=== PATIENT | female | born 1990 | race Caucasian/White ===

== ENCOUNTER 2020-02-17 12:22 | Observation (INO) | payer MEDICAID, SELFPAY ==
[2020-02-17 12:24] VITALS: BP 101/67; PULSE 87; RESP 18; TEMP 36.3; O2SAT 95; BMI 34.0
[2020-02-17 13:50] LABS: Absolute Lymphocyte Count 1.97 X10^3/uL (0.83-4.51); Absolute Neutrophil Count 4.7 X10^3/uL (2.0-7.7); Basophil# 0.03 X10^3/uL; Basophil% 0.4 % (0-1); Eosinophil# 0.13 X10^3/uL; Eosinophils% 1.8 % (0-5); Hematocrit 36.1 % (37-47); Hemoglobin 11.7 g/dL (12.0-15.0); Lymphocyte # 1.97 X10^3/ul (4.0); Lymphocyte % 27.4 % (19-41); Mean Corp Hgb Conc 32.4 g/dL (32-36); Mean Corpuscular Hgb 28.4 pg (27.0-32.0); Mean Corpuscular Volume 87.6 fL (81-99); Mean Platelet Vol. 9.4 fl (6.2-12.0); Monocyte# 0.39 X10^3/uL; Monocyte% 5.4 % (0-10); NRBC Flagged by Analyzer 0 % (0-5); Neutrophil # 4.65 X10^3/uL (2.7-7.7); Neutrophil % 64.7 % (47-70); Platelet Count 307 K/mm3 (150-450); RBC Distribution Width CV 13.2 % (11.6-14.6); RBC Distribution Width SD 42.4 fl (35.1-43.9); Red Blood Count 4.12 M/mm3 (4.2-5.4); White Blood Count 7.2 K/mm3 (4.4-11.0)
[2020-02-17 14:06] LABS: ALB/GLOB Ratio 0.7 RATIO (0.9-2.4); AST(SGOT) 13 U/L (15-37); Alanine Aminotransfer ALT/SGPT 13 U/L (13-56); Albumin, Serum 2.9 g/dL (3.2-5.0); Alkaline Phosphatase 64 U/L (45-117); Anion Gap 4 (5-15); BUN 9 mg/dL (7-18); BUN/Creat Ratio 10.2 RATIO (10-20); Calcium,Total 8.6 mg/dL (8.5-10.1); Chloride 105 mmol/L (98-107); Creatinine, Serum 0.88 mg/dL (0.55-1.02); EST Glomerular Filtration Rate 80 mL/min (>60); Est Glom Filt Rate - Afr Amer 96 mL/min (>60); Glucose 112 mg/dL (74-106); Potassium 3.6 mmol/L (3.5-5.1); Protein, Total 6.9 g/dL (6.4-8.2); Sodium Level 138 mmol/L (136-145)
[2020-02-17 14:12] LABS: Alcohol, Blood (Medical)-Serum < 3.0 mg/dL; Internal QC Validated? YES +Cl - CLEAR BKGD; Pregnancy, Serum, hCG Quali. NEGATIVE Negative
[2020-02-17 14:34] VITALS: BP 103/57; PULSE 67; RESP 12; O2SAT 100
--- NOTE | 2020-02-17 14:55 | PCM.HP.STD ---
History of Present Illness Date of Admission: 02/17/20 Chief Complaint: Opiate withdrawal The patient is a 29 year old F with a past medical history of opiate abuse. She was admitted through the ED on 02/17/2020 with a complaint of acute opiate withdrawal. Patient uses IV heroin and IV cocaine and last used the day before admission. She still uses it IV. She complained of abdominal cramping generally feeling restless as well as restless legs. She also complained of pain on her right thigh at the site where she had been injecting IV heroin with some associated redness. Review of sytems otherwise negative. On admission, temperature was 98 Fahrenheit with blood pressure of 93/53, pulse rate of 73 and respiratory rate of 18 with pulse ox of 98%. Chemistry was essentially unremarkable and CBC showed hemoglobin of 7.1 with white cell count of 7.2. Platelets were 307. She was given IV doxycycline in the ED for cellulitis of the right thigh and is been admitted to manage for acute opiate withdrawal and cellulitis due to IV drug use. [] Past Medical History Past Medical History (Chronic Problems): Chronic Problems Hepatitis C (Chronic) IVDU (intravenous drug user) (Chronic) Tobacco abuse (Chronic) Anxiety and depression (Chronic) Allergies cephalexin monohydrate [From Keflex] Allergy (Verified 02/17/20 12:26) Hives clindamycin Allergy (Verified 02/17/20 12:26) Hives morphine Allergy (Verified 02/17/20 12:26) Hives ondansetron HCl [From Zofran (as hydrochloride)] Allergy (Verified 02/17/20 12:26) Hives rifampin Allergy (Verified 02/17/20 12:26) Hives sulfamethoxazole [From Bactrim] Allergy (Verified 02/17/20 12:26) Hives trimethoprim [From Bactrim] Allergy (Verified 02/17/20 12:26) Hives vancomycin Allergy (Verified 02/17/20 12:26) Hives Home Medications: Ambulatory Orders Medication Instructions Recorded NK 02/17/20 Surgical History: - - I+D, cholecystectomy, x 3. 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 Denies: Anorexia, Chills, Fever, Fatigue Eyes: Denies: Blurred vision HEENT: Denies: Head Aches, Sinus Congestion, Sinus Drainage Cardiovascular: Denies: Chest Pain, Palpitations Respiratory: Denies: Cough, Shortness of Breath, Shortness of breath at rest, Shortness of breath upon exertion, Sputum production Gastrointestinal: Denies: Abdominal Pain, Nausea, Vomiting Genitourinary: Denies: Dysuria Musculoskeletal: Reports: - - right thigh pain. Denies: Joint Pain, Joint Tenderness Skin: Reports: - - redness on right thigh. Denies: Rash, Wounds Neurological: Denies: Numbness, Tingling, Focal weakness Psychiatric: Denies: Anxiety, Depression, Homicidal Ideations, Suicidal Ideations Hematologic/ Lymphatic: Denies: Easy Bruising, Easy Bleeding VTE Information - Inpt Only VTE Present on Admission: No VTE Pharm Prophylaxis ordered?: Yes Patient Problems: Active and Suspected Problems Opiate dependence (Acute) Cellulitis of right thigh (Acute) - Physical Exam Vitals/I&O's: Vital Signs Temp Pulse Resp BP Pulse Ox 97.3 F L 67 12 103/57 L 100 02/17/20 12:24 02/17/20 14:34 02/17/20 14:34 02/17/20 14:34 02/17/20 14:34 Oxygen Delivery Method Room Air Weight: 217 lb Body Mass Index (BMI) 34.0 Finger Stick Blood Glucose 81 General: Alert, Oriented x3, Cooperative HEENT: Atraumatic, PERRLA, EOMI, Normocephalic Oral: Moist Mucosa Neck: Supple, No JVD, Negative Carotid Bruits Lungs: Clear to auscultation, Normal air movement, No rhonchi, No wheeze, No rales Cardiovascular: Regular rate, Regular Rhythm, Normal S1, Normal S2, No murmurs Abdomen: Bowel Sounds Present, Soft, Non Tender, Non-Distended, No Hepato-splenomegaly Extremities: No cyanosis, No edema, Capillary Refill Less than 3 Seconds Skin: - - redness, induration and tenderness over anterior right thigh, measuring ~ 3x3cm Musculoskeletal: No Tenderness to Palpation of Joints or Extremities Lymphatic: No Cervical, Supraclavicular, or Inguinal Adenopathy Neurological: Cranial nerves II-XII grossly intact, Neuro grossly intact, Motor Exam 5/5 strength throughout Psych/Mental Status: Anxious, Restless, Alert and oriented to time, place, person, mood and affect Laboratory Results 02/17/20 13:30: WBC 7.2, RBC 4.12 L, Hgb 11.7 L, Hct 36.1 L, MCV 87.6, MCH 28.4, MCHC 32.4, RDW Std Deviation 42.4, RDW Coeff of Rex 13.2, Plt Count 307, MPV 9.4, Immature Gran % (Auto) 0.300, Neut % (Auto) 64.7, Lymph % (Auto) 27.4, [place] % (Auto) 5.4, Eos % (Auto) 1.8, Baso % (Auto) 0.4, Absolute Neuts (auto) 4.7, Absolute Lymphs (auto) 1.97, Nucleated RBC % 0 02/17/20 13:30: Sodium 138, Potassium 3.6, Chloride 105, Carbon Dioxide 29.0, Anion Gap 4 L, BUN 9, Creatinine 0.88, Estim Creat Clear Calc 90.90, Est GFR (MDRD) Af Amer 96, Est GFR (MDRD) Non-Af 80, BUN/Creatinine Ratio 10.2, Glucose 112 H, Calcium 8.6, Total Bilirubin 0.70, AST 13 L, ALT 13, Alkaline Phosphatase 64, Total Protein 6.9, Albumin 2.9 L, Globulin 4.0, Albumin/Globulin Ratio 0.7 L 02/17/20 13:30: Ethyl Alcohol < 3.0 02/17/20 13:30: Serum , Qual NEGATIVE 02/17/20 14:28: Urine Opiates Screen Pending, Urine Methadone Screen Pending, Ur Barbiturates Screen Pending, Ur Phencyclidine Scrn Pending, Ur Amphetamines Screen Pending, U Methamphetamin-MDMA Pending, U Benzodiazepines Scrn Pending, Urine Cocaine Screen Pending, U Cannabinoids Screen Pending, Ur Drug Screen Comment Assessment/Plan All Active Problems Opiate dependence (Acute) Cellulitis of right thigh (Acute) MRSA cellulitis (Resolved) 29-year-old admitted for acute opioid withdrawal. 1. Acute opioid withdrawal. Admit to [facility]. Urine tox is pending. Put on acute opioid withdrawal with buprenorphine. monitor CINA score 2. Nicotine dependence: counseled to quit. nicotine patch 21mg daily 3. cellulitis of the left thigh due to IV drug use allergic to many meds. Will give PO doxycycline (IV doxycycline in shortage) DVT prophylaxis: low risk, encourage to ambulate Disposition: plans on going to [facility] for rehab once detox process is over Inpatient E&M: 00492 Init Hosp L3
--- NOTE | 2020-02-17 15:00 | NURSING ---
MED SURG KORAM OPIATE WITHDRAWAL
--- NOTE | 2020-02-17 15:12 | ED.DCSUM_ITS ---
History of Present Illness Chief Complaint: Substance Abuse Informant: Patient Onset: Today Context: Gradual Onset Timing: Continuous Quality: anxious, restlessness, legs hurt, right thigh pain Current Severity: Moderate Maximum Severity: Moderate Worsened by: palpation Relieved by: leaving alone Associated Symptoms: yawning. no abd pain, n/v/d. Narrative: Patient states she wants detox from heroin. She has history of chronic abuse. She was in detox before but it has been a while. Her last use was about 4 AM. She feels like she is in withdrawal. She feels shaky in her legs, restless, and she has an area on her right thigh where she injected and feels she may be getting infected because it hurts and is red. She denies any fevers or chills. She has no other medical problems that she takes medications for. She denies drinking alcohol or using other substances. - Past Medical History (1) Anxiety and depression Status: Chronic (2) Hepatitis C Status: Chronic (3) MRSA cellulitis Status: Resolved Past Medical History - Allergies and Home Meds Allergies/Adverse Reactions: Allergies cephalexin monohydrate [From Keflex] Allergy (Verified 02/17/20 12:26) Hives clindamycin Allergy (Verified 02/17/20 12:26) Hives morphine Allergy (Verified 02/17/20 12:26) Hives ondansetron HCl [From Zofran (as hydrochloride)] Allergy (Verified 02/17/20 12:26) Hives rifampin Allergy (Verified 02/17/20 12:26) Hives sulfamethoxazole [From Bactrim] Allergy (Verified 02/17/20 12:26) Hives trimethoprim [From Bactrim] Allergy (Verified 02/17/20 12:26) Hives vancomycin Allergy (Verified 02/17/20 12:26) Hives Surgical History: - - I+D, cholecystectomy, x 3. Smoking Status: Current every day smoker - Family History Maternal Family History: Reports: Diabetes, Heart Disease, Hypertension Paternal Family History: Reports: Diabetes, Heart Disease, Hypertension Review of Systems General: Reports: Malaise. Denies: Chills, Fever, Sweats Eyes: Denies: Visual changes - bilaterally, Diplopia ENT: Denies: Rhinorrhea, Sore throat Cardiovascular: Denies: Chest pain, Palpitations Respiratory: Denies: Dyspnea, Cough, Dyspnea on exertion Gastrointestinal: Denies: Abdominal pain, Nausea, Vomiting, Diarrhea, Melena, Hematochezia Genitourinary: Denies: Dysuria, Hematuria, Frequency Musculoskeletal: Reports: Extremity Pain. Denies: Back pain Skin: Reports: Rash. Denies: Wounds Neurological: Denies: Headache, Weakness, Numbness Physical Exam Vital Signs/Narrative: Vital Signs Temp Pulse Resp BP Pulse Ox 02/17/20 14:34 67 12 103/57 L 100 02/17/20 12:24 97.3 F L 87 18 101/67 95 Inital Vital Signs reviewed: Yes General: Well nourished, Well developed, No Acute Distress Head: Normocephalic, Atraumatic Eyes: Perrl, EOMI ENT: Moist mucous membranes, No rhinorrhea Neck: Supple, Nontender Cardiovascular: Regular rate, Regular rhythm, No murmurs Respiratory: No distress, CTA bilaterally, Chest nontender Abdomen: Soft, Nontender, Nondistended, Normal bowel sounds Back: Nontender, Normal Inspection Extremities: No edema, Tenderness - Right anterior mid thigh at injection area that may be infected Skin: Normal color - Except erythematous area right thigh, - - Tender mild cellulitis sick centimeters in diameter right mid thigh dorsum, no fluctuance, mild induration in the middle for about 1 cm. No pointing. Neurological: Alert, Oriented x3, Cranial nerves II-XII grossly intact, Normal Strength, Normal Sensation Psychological: Agitated - And anxious, cooperative Diagnostic/Tx/Re-eval Laboratory Tests 02/17/20 02/17/20 02/17/20 Range/Units 14:28 13:30 13:30 WBC (4.4-11.0) K/mm3 RBC (4.2-5.4) M/mm3 Hgb (12.0-15.0) g/dL Hct (37-47) % MCV (81-99) fL MCH (27.0-32.0) pg MCHC (32-36) g/dL RDW Std Deviation (35.1-43.9) fl RDW Coeff of Rex (11.6-14.6) % Plt Count (150-450) K/mm3 MPV (6.2-12.0) fl Immature Gran % (Auto) (0.0-0.9) % Neut % (Auto) (47-70) % Lymph % (Auto) (19-41) % [place] % (Auto) (0-10) % Eos % (Auto) (0-5) % Baso % (Auto) (0-1) % Absolute Neuts (auto) (2.0-7.7) X10^3/uL Absolute Lymphs (auto) (0.83-4.51) X10^3/uL Nucleated RBC % (0-5) % Sodium (136-145) mmol/L Potassium (3.5-5.1) mmol/L Chloride (98-107) mmol/L Carbon Dioxide (21.0-32.0) mmol/L Anion Gap (5-15) BUN (7-18) mg/dL Creatinine (0.55-1.02) mg/dL Estim Creat Clear Calc ml/min Est GFR (MDRD) Af Amer (>60) mL/min Est GFR (MDRD) Non-Af (>60) mL/min BUN/Creatinine Ratio (10-20) RATIO Glucose (74-106) mg/dL Calcium (8.5-10.1) mg/dL Total Bilirubin (0.20-1.00) mg/dL AST (15-37) U/L ALT (13-56) U/L Alkaline Phosphatase (45-117) U/L Total Protein (6.4-8.2) g/dL Albumin (3.2-5.0) g/dL Globulin (2.2-4.2) g/dL Albumin/Globulin Ratio (0.9-2.4) RATIO Serum , Qual NEGATIVE Negative Ur Drug Screen Comment Ethyl Alcohol < 3.0 mg/dL 02/17/20 02/17/20 Range/Units 13:30 13:30 WBC 7.2 (4.4-11.0) K/mm3 RBC 4.12 L (4.2-5.4) M/mm3 Hgb 11.7 L (12.0-15.0) g/dL Hct 36.1 L (37-47) % MCV 87.6 (81-99) fL MCH 28.4 (27.0-32.0) pg MCHC 32.4 (32-36) g/dL RDW Std Deviation 42.4 (35.1-43.9) fl RDW Coeff of Rex 13.2 (11.6-14.6) % Plt Count 307 (150-450) K/mm3 MPV 9.4 (6.2-12.0) fl Immature Gran % (Auto) 0.300 (0.0-0.9) % Neut % (Auto) 64.7 (47-70) % Lymph % (Auto) 27.4 (19-41) % [place] % (Auto) 5.4 (0-10) % Eos % (Auto) 1.8 (0-5) % Baso % (Auto) 0.4 (0-1) % Absolute Neuts (auto) 4.7 (2.0-7.7) X10^3/uL Absolute Lymphs (auto) 1.97 (0.83-4.51) X10^3/uL Nucleated RBC % 0 (0-5) % Sodium 138 (136-145) mmol/L Potassium 3.6 (3.5-5.1) mmol/L Chloride 105 (98-107) mmol/L Carbon Dioxide 29.0 (21.0-32.0) mmol/L Anion Gap 4 L (5-15) BUN 9 (7-18) mg/dL Creatinine 0.88 (0.55-1.02) mg/dL Estim Creat Clear Calc 90.90 ml/min Est GFR (MDRD) Af Amer 96 (>60) mL/min Est GFR (MDRD) Non-Af 80 (>60) mL/min BUN/Creatinine Ratio 10.2 (10-20) RATIO Glucose 112 H (74-106) mg/dL Calcium 8.6 (8.5-10.1) mg/dL Total Bilirubin 0.70 (0.20-1.00) mg/dL AST 13 L (15-37) U/L ALT 13 (13-56) U/L Alkaline Phosphatase 64 (45-117) U/L Total Protein 6.9 (6.4-8.2) g/dL Albumin 2.9 L (3.2-5.0) g/dL Globulin 4.0 (2.2-4.2) g/dL Albumin/Globulin Ratio 0.7 L (0.9-2.4) RATIO Serum , Qual Negative Ur Drug Screen Comment Ethyl Alcohol mg/dL - Medical Decision Making Patient does appear to be in some mild to moderate opiate withdrawal. She was treated with Ativan and Ultram. With regards to her right thigh infection, she states she was injecting into veins in her thighs. She appears to have either an early abscess, or cellulitis with a subcutaneous deposition of drug. It does not appear amenable to incision and drainage at this time, however it certainly could worsen to the point where it is. She has medication/antibiotic allergies to almost every medication we use to cover MRSA, which she has a history of, including vancomycin. The only medication that we have available quickly in the emergency department that may have some action against MRSA and that she is not allergic to is doxycycline, she was given a dose. Toxicology screen is pending, her alcohol is negative as is her and the rest of her labs are okay, she is admitted to hospitalist for further detox evaluation. ED Disposition - Plan for ED Patient: Disposition: Acute Care Hospital [facility] Diagnosis: Opiate dependence, Cellulitis of right thigh
[2020-02-17] MEDS: Doxycycline 100 MG CAPSULE PO ×2 (15:35→22:28)
[2020-02-17] MEDS: LORazepam 1 MG Tablet PO (15:35)
[2020-02-17] MEDS: traMADol 50 MG Tablet PO (15:35)
[2020-02-17 15:36] VITALS: BP 93/53; PULSE 73; RESP 18; TEMP 36.7; O2SAT 98
[2020-02-17 15:49] VITALS: BMI 33.2
[2020-02-17 16:06] VITALS: BP 96/60; PULSE 71; RESP 16; TEMP 36.6; O2SAT 100
[2020-02-17 16:13] LABS: Amphetamine Urine VISTA POSITIVE (<1000 ng/mL); Barbiturate Urine VISTA NEGATIVE (< 200 ng/mL); Benzodiazepine Urine VISTA NEGATIVE (< 200 ng/mL); Cocaine Urine VISTA POSITIVE (< 300 ng/mL); Ecstacy Urine VISTA NEGATIVE (< 500 ng/mL); Methadone Urine VISTA NEGATIVE (< 300 ng/mL); PCP Urine VISTA NEGATIVE (< 25 ng/mL); THC Urine VISTA POSITIVE (< 50 ng/mL); Vista UDS pH Range 6
--- NOTE | 2020-02-17 16:17 | NURSING ---
redness to right thigh marked around. inner [place] of bright redness marked and the light pink outer rim also marked
[2020-02-17 20:29] VITALS: BP 137/76; PULSE 78; RESP 16; TEMP 36.9; O2SAT 97
[2020-02-17] MEDS: Buprenorphine HCl 2 MG TAB.SUBL SL (20:37)
[2020-02-17] MEDS: Methocarbamol 750 MG Tablet 1500 MG PO (20:37)
[2020-02-17] MEDS: cloNIDine HCl 0.1 MG Tablet PO (20:37)
[2020-02-18] VITALS (7 sets, daily range): BP systolic 100–143; BP diastolic 45–88; PULSE 60–96; RESP 16–22; TEMP 36.7–37.3; O2SAT 96–100
[2020-02-18] MEDS: Gabapentin 300 MG Capsule PO ×2 (00:41→20:54)
[2020-02-18] MEDS: Buprenorphine HCl 2 MG TAB.SUBL SL ×3 (02:03→17:21)
[2020-02-18] MEDS: hydrOXYzine PAM 25 MG Capsule 50 MG PO ×2 (04:14→11:34)
[2020-02-18] MEDS: Methocarbamol 750 MG Tablet 1500 MG PO ×3 (04:15→20:54)
--- NOTE | 2020-02-18 09:25 | CASEMGMT ---
Social Work Note Pt is RAMP pt. SW placed a call to Sindi at [facility] and updated her that pt will need to be seen today. Lety Wilks MARINE ENGINEERING TEACHER, HEEL [employer]MER
[2020-02-18] MEDS: Doxycycline 100 MG CAPSULE PO ×2 (09:28→20:54)
[2020-02-18] MEDS: cloNIDine HCl 0.1 MG Tablet PO (11:34)
[2020-02-18] MEDS: Dicyclomine 10 MG Capsule 20 MG PO (11:34)
--- NOTE | 2020-02-18 11:37 | NURSING ---
Pt states she does not wish for this nurse to call anyone with updates
--- NOTE | 2020-02-18 11:41 | PN_ITS ---
Patient Problems: Active and Suspected Problems Opiate dependence (Acute) Cellulitis of right thigh (Acute) Reason for Visit: opiate withdrawal Subjective: restless legs, abdominal cramps. Vitals/I&O's: Vital Signs Temp Pulse Resp BP Pulse Ox 36.7 C 60 18 108/45 L 100 02/18/20 09:31 02/18/20 09:32 02/18/20 09:31 02/18/20 09:31 02/18/20 09:31 Oxygen Delivery Method Room Air Weight: 96.2 kg Body Mass Index (BMI) 33.2 Finger Stick Blood Glucose 81 Intake and Output for Last 24 Hours 02/16/20 02/17/20 02/18/20 23:59 23:59 23:59 Intake Total 200 / 200 1400 / 1400 Balance 200 / 200 1400 / 1400 General: Alert, - - writhing around in bed. afebrile. HEENT: Atraumatic, Normocephalic Oral: Moist Mucosa, No Gingival or Mucosal Lesions/ Ulcerations Neck: No Nodes, Thyroid Normal Size and Texture Lungs: Clear to auscultation, Normal air movement, No rhonchi, No wheeze, No rales Cardiovascular: Regular rate, Regular Rhythm, Normal S1, Normal S2, No murmurs Abdomen: Bowel Sounds Present, Soft, Non Tender, Non-Distended, No Hepato- splenomegaly Extremities: No edema, No Calf Tenderness Skin: No rashes, No breakdown Laboratory Results 02/17/20 13:30: WBC 7.2, RBC 4.12 L, Hgb 11.7 L, Hct 36.1 L, MCV 87.6, MCH 28.4, MCHC 32.4, RDW Std Deviation 42.4, RDW Coeff of Rex 13.2, Plt Count 307, MPV 9.4 , Immature Gran % (Auto) 0.300, Neut % (Auto) 64.7, Lymph % (Auto) 27.4, [place] % (Auto) 5.4, Eos % (Auto) 1.8, Baso % (Auto) 0.4, Absolute Neuts (auto) 4.7, Absolute Lymphs (auto) 1.97, Nucleated RBC % 0 02/17/20 13:30: Sodium 138, Potassium 3.6, Chloride 105, Carbon Dioxide 29.0, Anion Gap 4 L, BUN 9, Creatinine 0.88, Estim Creat Clear Calc 90.90, Est GFR (MDRD) Af Amer 96, Est GFR (MDRD) Non-Af 80, BUN/Creatinine Ratio 10.2, Glucose 112 H, Calcium 8.6, Total Bilirubin 0.70, AST 13 L, ALT 13, Alkaline Phosphatase 64, Total Protein 6.9, Albumin 2.9 L, Globulin 4.0, Albumin/Globulin Ratio 0.7 L 02/17/20 13:30: Ethyl Alcohol < 3.0 02/17/20 13:30: Serum , Qual NEGATIVE 02/17/20 14:28: Urine Opiates Screen POSITIVE H, Urine Methadone Screen NEGATIVE, Ur Barbiturates Screen NEGATIVE, Ur Phencyclidine Scrn NEGATIVE, Ur Amphetamines Screen POSITIVE H, U Methamphetamin-MDMA NEGATIVE, U Benzodiazepines Scrn NEGATIVE, Urine Cocaine Screen POSITIVE H, U Cannabinoids Screen POSITIVE H, Ur Drug Screen Comment Current Medications Buprenorphine HCl (Buprenorphine Hcl) 4 mg SL Q8H CHIDI; Taper Stop: 02/20/20 17:44 Last Admin: 02/18/20 09:28 Dose: 4 mg Documented by: Clonidine (Catapres) 0.1 mg PO Q8H PRN PRN PRN Reason: RESTLESSNESS Last Admin: 02/18/20 11:34 Dose: 0.1 mg Documented by: Dextrose (D50w Syringe) 0 gm IV X1 PRN; Protocol PRN Reason: Hypoglycemia Dicyclomine HCl (Bentyl) 20 mg PO Q6H PRN PRN PRN Reason: Abdominal Discomfort Last Admin: 02/18/20 11:34 Dose: 20 mg Documented by: Doxycycline Monohydrate (Doxycycline) 100 mg PO BID CHIDI Last Admin: 02/18/20 09:28 Dose: 100 mg Documented by: Gabapentin (Neurontin) 300 mg PO Q8H PRN PRN PRN Reason: moderate to severe anxiety Last Admin: 02/18/20 00:41 Dose: 300 mg Documented by: Glucagon () 1 mg IM .X1 PRN PRN Reason: Hypoglycemia Hydroxyzine Pamoate (Vistaril Pamoate Capsule) 50 mg PO Q6H PRN PRN PRN Reason: mild anxiety Last Admin: 02/18/20 11:34 Dose: 50 mg Documented by: Loperamide HCl (Imodium) 2 mg PO Q4H PRN PRN PRN Reason: LOOSE STOOLS Methocarbamol (Methocarbamol) 1,500 mg PO Q6H PRN PRN PRN Reason: MUSCLE SPASM Last Admin: 02/18/20 11:34 Dose: 1,500 mg Documented by: Trazodone HCl (Desyrel) 100 mg PO QHS PRN PRN PRN Reason: INSOMNIA STROKE Vital Signs/Narrative: Vital Signs Temp Pulse Resp BP Pulse Ox 02/18/20 09:32 60 02/18/20 09:31 36.7 C 60 18 108/45 L 100 Medical Necessity - Tobacco Use Smoking Status: Heavy Smoker (>10/day) Tobacco Use: Cigarettes Assessment/Plan All Active Problems Opiate dependence (Acute) Cellulitis of right thigh (Acute) MRSA cellulitis (Resolved) 1. acute opioid withdrawal * continue buprenorphine taper * complicated by polysubstance abuse * patient has inpatient program scheduled after discharge 2. leg cellulitis * continue PO doxycycline. Inpatient E&M: 87870 Subs Hosp L2
[2020-02-18] MEDS: traZODone 100 MG Tablet PO (20:54)
[2020-02-19 02:25] VITALS: BP 96/54; PULSE 65; RESP 16; TEMP 36.8; O2SAT 97
[2020-02-19] MEDS: Buprenorphine HCl 2 MG TAB.SUBL SL ×2 (02:29→09:48)
[2020-02-19] MEDS: Dicyclomine 10 MG Capsule 20 MG PO ×2 (02:29→13:03)
[2020-02-19] MEDS: hydrOXYzine PAM 25 MG Capsule 50 MG PO ×2 (02:29→13:03)
--- NOTE | 2020-02-19 08:51 | CASEMGMT ---
Social Work Note SW spoke with Sindi at [facility]. Sindi states Darien from [facility] will be at [facility] today to speak with pt. Lety Wilks ENDOSCOPY REGISTERED NURSE, RAKER [employer]ING [employer]EL
[2020-02-19 09:36] VITALS: BP 109/59; PULSE 49; PULSE 60; RESP 12; TEMP 36.7; O2SAT 98
[2020-02-19] MEDS: Doxycycline 100 MG CAPSULE PO (09:48)
--- NOTE | 2020-02-19 10:16 | PN_ITS ---
Patient Problems: Active and Suspected Problems Opiate dependence (Acute) Cellulitis of right thigh (Acute) Reason for Visit: opiate withdrawal Subjective: still with restless legs, but improving. no abdominal pain. Vitals/I&O's: Vital Signs Temp Pulse Resp BP Pulse Ox 36.7 C 60 12 109/59 L 98 02/19/20 09:36 02/19/20 09:36 02/19/20 09:36 02/19/20 09:36 02/19/20 09:36 Oxygen Delivery Method Room Air Weight: 96.2 kg Body Mass Index (BMI) 33.2 Finger Stick Blood Glucose 81 Intake and Output for Last 24 Hours 02/17/20 02/18/20 02/19/20 23:59 23:59 23:59 Intake Total 200 / 200 1400 / 1400 Balance 200 / 200 1400 / 1400 General: Alert, No apparent distress HEENT: Atraumatic, Normocephalic Psych/Mental Status: Appropriate Comment: patient declined a physical exam Current Medications Buprenorphine HCl (Buprenorphine Hcl) 2 mg SL Q8H CHIDI; Taper Stop: 02/20/20 17:44 Last Admin: 02/19/20 09:48 Dose: 2 mg Documented by: Clonidine (Catapres) 0.1 mg PO Q8H PRN PRN PRN Reason: RESTLESSNESS Last Admin: 02/18/20 11:34 Dose: 0.1 mg Documented by: Dextrose (D50w Syringe) 0 gm IV X1 PRN; Protocol PRN Reason: Hypoglycemia Dicyclomine HCl (Bentyl) 20 mg PO Q6H PRN PRN PRN Reason: Abdominal Discomfort Last Admin: 02/19/20 02:29 Dose: 20 mg Documented by: Doxycycline Monohydrate (Doxycycline) 100 mg PO BID CHIDI Last Admin: 02/19/20 09:48 Dose: 100 mg Documented by: Gabapentin (Neurontin) 300 mg PO Q8H PRN PRN PRN Reason: moderate to severe anxiety Last Admin: 02/18/20 20:54 Dose: 300 mg Documented by: Glucagon () 1 mg IM .X1 PRN PRN Reason: Hypoglycemia Hydroxyzine Pamoate (Vistaril Pamoate Capsule) 50 mg PO Q6H PRN PRN PRN Reason: mild anxiety Last Admin: 02/19/20 02:29 Dose: 50 mg Documented by: Loperamide HCl (Imodium) 2 mg PO Q4H PRN PRN PRN Reason: LOOSE STOOLS Methocarbamol (Methocarbamol) 1,500 mg PO Q6H PRN PRN PRN Reason: MUSCLE SPASM Last Admin: 02/18/20 20:54 Dose: 1,500 mg Documented by: Trazodone HCl (Desyrel) 100 mg PO QHS PRN PRN PRN Reason: INSOMNIA Last Admin: 02/18/20 20:54 Dose: 100 mg Documented by: STROKE Vital Signs/Narrative: Vital Signs Temp Pulse Resp BP Pulse Ox 02/19/20 09:36 36.7 C 60 12 109/59 L 98 Medical Necessity - Tobacco Use Smoking Status: Heavy Smoker (>10/day) Tobacco Use: Cigarettes Assessment/Plan All Active Problems Opiate dependence (Acute) Cellulitis of right thigh (Acute) MRSA cellulitis (Resolved) 1. acute opioid withdrawal * continue buprenorphine taper * complicated by polysubstance abuse * patient has inpatient program scheduled after discharge 2. leg cellulitis * continue PO doxycycline. Inpatient E&M: [id number] [facility] Hosp L1
[2020-02-19 12:58] VITALS: BP 106/68; PULSE 66; RESP 16; TEMP 36.7; O2SAT 99
[2020-02-19] MEDS: cloNIDine HCl 0.1 MG Tablet PO (13:03)
--- NOTE | 2020-02-19 16:27 | DS.PCM_ITS ---
Discharge Date and Diagnosis - Problem List Patient Problems: Active and Suspected Problems Opiate dependence (Acute) Cellulitis of right thigh (Acute) Date of Admission: 02/17/20 Date of Discharge: 02/19/20 - Primary Discharge Diagnosis Acute Problems: Active Problems Opiate dependence (Acute) Cellulitis of right thigh (Acute) - Secondary Discharge Diagnosis Chronic Problems: Chronic Problems Hepatitis C (Chronic) IVDU (intravenous drug user) (Chronic) Tobacco abuse (Chronic) Anxiety and depression (Chronic) Hospital Course and Treatment Operations: None Summary of Care Provided: The patient is a 29 year old F admitted for treatment for acute opiate withdrawal. Patient was initiated on buprenorphine taper. Patient would 1 more day and then was to contact 184 continue treatment upon discharge. Patient left AGAINST MEDICAL ADVICE. [] Patient Problems: Active and Suspected Problems Opiate dependence (Acute) Cellulitis of right thigh (Acute) - Physical Exam Vitals/I&O's: Vital Signs Temp Pulse Resp BP Pulse Ox 36.7 C 66 16 106/68 99 02/19/20 12:58 02/19/20 12:58 02/19/20 12:58 02/19/20 12:58 02/19/20 12:58 Oxygen Delivery Method Room Air Weight: 96.2 kg Body Mass Index (BMI) 33.2 Finger Stick Blood Glucose 81 Intake and Output for Last 24 Hours 02/17/20 02/18/20 02/19/20 23:59 23:59 23:59 Intake Total 200 / 200 1400 / 1400 Balance 200 / 200 1400 / 1400 Current Medications Buprenorphine HCl (Buprenorphine Hcl) 2 mg SL Q8H CHIDI; Taper Stop: 02/20/20 17:44 Last Admin: 02/19/20 09:48 Dose: 2 mg Documented by: Clonidine (Catapres) 0.1 mg PO Q8H PRN PRN PRN Reason: RESTLESSNESS Last Admin: 02/19/20 13:03 Dose: 0.1 mg Documented by: Dextrose (D50w Syringe) 0 gm IV X1 PRN; Protocol PRN Reason: Hypoglycemia Dicyclomine HCl (Bentyl) 20 mg PO Q6H PRN PRN PRN Reason: Abdominal Discomfort Last Admin: 02/19/20 13:03 Dose: 20 mg Documented by: Doxycycline Monohydrate (Doxycycline) 100 mg PO BID CHIDI Last Admin: 02/19/20 09:48 Dose: 100 mg Documented by: Gabapentin (Neurontin) 300 mg PO Q8H PRN PRN PRN Reason: moderate to severe anxiety Last Admin: 02/18/20 20:54 Dose: 300 mg Documented by: Glucagon () 1 mg IM .X1 PRN PRN Reason: Hypoglycemia Hydroxyzine Pamoate (Vistaril Pamoate Capsule) 50 mg PO Q6H PRN PRN PRN Reason: mild anxiety Last Admin: 02/19/20 13:03 Dose: 50 mg Documented by: Loperamide HCl (Imodium) 2 mg PO Q4H PRN PRN PRN Reason: LOOSE STOOLS Methocarbamol (Methocarbamol) 1,500 mg PO Q6H PRN PRN PRN Reason: MUSCLE SPASM Last Admin: 02/18/20 20:54 Dose: 1,500 mg Documented by: Trazodone HCl (Desyrel) 100 mg PO QHS PRN PRN PRN Reason: INSOMNIA Last Admin: 02/18/20 20:54 Dose: 100 mg Documented by: Home Medications: Medications to take at Discharge NK 02/17/20 Primary Care Physician: Dheeraj Noyola MD [Primary Care Provider] - Disposition: Against Medical Advice Medical Necessity - Tobacco Use Smoking Status: Heavy Smoker (>10/day) Tobacco Use: Cigarettes Meaningful Use Info Meaningful Use Diagnoses (Choose all that apply): None applicable Inpatient E&M: [id number] [facility]
--- NOTE | 2020-02-19 18:09 | NURSING ---
1635 Pt left AMA
== END 2020-02-19 16:35 | disposition left against medical advice (07) ==
LOC: ED 15:15 → MS3 15:41
PROVIDERS: Admitting Provider Student in an Organized Health Care Education/Training Program; Emergency Provider Emergency Medicine; PCP Family Medicine
DX: F11.23 Opioid dependence with withdrawal (principal); L03.115 Cellulitis of right lower limb; B18.2 Chronic viral hepatitis C; F17.210 Nicotine dependence, cigarettes, uncomplicated
CPT/HCPCS: 80053; 80307; 80320; 84703; 85025; 99218; 99284; H0012; G0378; G0480

== ENCOUNTER 2023-08-14 22:08 | Observation (INO) | payer MEDICAID, SELFPAY ==
[2023-08-14 22:09] VITALS: BP 137/83; PULSE 96; RESP 16; TEMP 36.1; O2SAT 100; BMI 30.4
--- NOTE | 2023-08-14 22:23 | EX.ED.SAOD ---
HPI History of Present Illness Chief Complaint: Wound Check Detail of Chief Complaint: Requesting detox for cocaine and fentanyl abuse. Informant: patient Onset/Context/Timing Onset: - (Drug abuse history for nearly 20 years.) Context: Gradual Onset Timing: Continuous Current Severity: Mild Maximum Severity: Mild Narrative Narrative: 32-year-old female had a done in the [facility] July 03. She is presenting today to be admitted for detox for both cocaine and fentanyl abuse. Prior history of IV the drug abuse but not for years. States that she snorts cocaine and fentanyl. Last detox was 3 to 6 months ago she believes. She also wanted me to evaluate her incision. Prior similar symptoms: Yes Recent Illness/Hospitalization: No PFSH PFSH Home Medications buprenorphine HCl 8 mg sublingual tablet 8 mg sublingual DAILY 08/14/23 [History Last Taken Unknown] gabapentin 800 mg tablet 800 mg PO Q6H 08/14/23 [History Last Taken Unknown] Allergy/AdvReac Type Severity Reaction Status Date / Time amoxicillin Allergy Hives Verified 08/14/23 22:12 cephalexin monohydrate Allergy Hives Verified 08/14/23 22:12 [From Keflex] clindamycin Allergy Hives Verified 08/14/23 22:12 morphine Allergy Hives Verified 08/14/23 22:12 naloxone Allergy Anaphylaxis Verified 08/14/23 22:12 ondansetron HCl Allergy Hives Verified 08/14/23 22:12 [From Zofran (as hydrochloride)] Penicillins Allergy Hives Verified 08/14/23 22:12 rifampin Allergy Hives Verified 08/14/23 22:12 sulfamethoxazole Allergy Hives Verified 08/14/23 22:12 [From Bactrim] trimethoprim [From Bactrim] Allergy Hives Verified 08/14/23 22:12 vancomycin Allergy Hives Verified 08/14/23 22:12 Social History Smoking Status: Heavy Smoker (>10/day) ROS ROS ED ROS Narrative Denies recent illness. Review of Systems ROS Unobtainable: Denies due to encephalopathy Constitutional Constitutional ED: Denies chills or fever(s) Eyes Eyes: Denies blurry vision ENT ENT ED: Denies ear pain Cardiovascular Cardiovascular: Denies chest pain Respiratory/Chest Respiratory/Chest: Denies cough or dyspnea Gastrointestinal Gastrointestinal: Denies abdominal pain Genitourinary Genitourinary ED: Denies dysuria Musculoskeletal Musculoskeletal: Denies arthralgias Integumentary Denies abscess Neurologic Neurologic: Denies headache(s) Psychiatric Psychiatric: Denies anxiety Endocrine Endocrinology: Denies cold intolerance Hematologic/Lymphatic Hematologic/Lymphatic: Denies easy bleeding, easy bruising or lymphadenopathy Allergic/Immunologic Allergic/Immunologic ED: Denies mouth swelling or tongue swelling EXAM Physical Exam Narrative Exam Narrative: Well-appearing 32-year-old female. Vital signs are stable afebrile. H EENT exam unremarkable. Lungs clear to auscultation bilaterally. Heart regular rhythm rate about 90 no murmur. Chest wall and ribs nontender. Abdomen soft nontender. She has a very well-healed lower abdominal horizontal scar. There is no redness. No warmth. No discharge. No separation. I am unable to express any pus. Moving all 4 extremities. Nontender no edema. Neurologically she is awake and alert with no focal motor deficits. Const Vital Signs: 08/14/23 22:09 Temperature 97 F L Temperature Source Temporal Pulse Rate 96 Respiratory Rate 16 Blood Pressure 137/83 H Blood Pressure Mean 101 Pulse Ox 100 Oxygen Delivery Method Room Air Positive well nourished and well developed; Negative for cachectic, contractures or unkempt General Appearance ED: well developed and NAD; Negative for unkempt, cachectic or contractures Nutritional Appearance: Negative for cachectic HEENT Reports moist mucous membranes atraumatic; Negative for trauma or tenderness Eyes PERRL and EOMs intact bilaterally General Eye ED: Negative for pale conjunctiva or scleral icterus Neck no lymphadenopathy, supple and no JVD Thyroid: Negative for tender or other Lymph Lymphatic: no lymphadenopathy noted; Negative for lymphadenopathy Chest Wall inspection of chest normal and palpation of chest normal Chest: Negative for other Resp normal respiratory effort and clear to auscultation bilaterally Effort and Inspection: Negative for retractions Auscultation: Negative for rales, rhonchi, wheezes or diminished lung sounds Cardio regular rate, regular rhythm, S1 normal heart sound, S2 normal heart sound and no murmurs Rate: Negative for bradycardia or tachycardic Rhythm: Negative for abnormal rhythm Bruits: Negative for other GI soft to palpation, non-tender, non-distended and no masses Inspection: Negative for abdominal distention Back/Spine no CVA tenderness General Back: Negative for CVA tenderness Cervical Spine: Negative for cervical spine tenderness Thoracic Spine / Upper Back: Negative for thoracic spinal tenderness Lumbar Spine / Lower Back: Negative for lumbar spinal tenderness Coccyx: Negative for swelling Extremity Extremity Narrative: Moving all 4 extremities. Nontender no edema. General Extremety ED: Negative for edema or tenderness General Extremity: Negative for edema Neuro oriented x3 and CN's II-XII intact bilaterally Sensorium / Orientation: alert, oriented to person, oriented to place and oriented to time; Negative for confused, lethargic or stuporous Speech: speech normal Motor Exam: strength 5/5 throughout Psych mental status grossly normal and thought process normal Appearance: Negative for unkempt Attitude: No belligerent, No agitated, No aggressive and No hostile Mood & Affect: Negative for depressed, anxious or tearful Skin General Skin Exam: Negative for jaundice Lesions: no lesions Rashes: no rashes Trauma: Negative for abrasion or laceration MDM MDM MDM Narrative Medical decision making narrative: 32-year-old female 19-year history of drug abuse. Requesting detox for snorting fentanyl and cocaine. Screening labs being obtained. Hospitalist will be paged for admission. Her exam is benign. She is medically cleared. I did review her recent incision is dry and clean. No signs of infection. History & Record Review Discussion w/independent historian: Patient Additional record(s) reviewed:: Prior inpatient record, Prior outpatient record, Prior ED visit and Prior labs Lab Data Attestation: I reviewed the patient's lab results. Lab results narrative: CBC shows a white count 6.9. H&H 11 and 34. Platelets 305. BMP is unremarkable gap of 4 normal BUN and creatinine. Glucose 98. Liver enzymes unremarkable. Serum test negative. Alcohol negative. Urine tox is pending. Labs: Laboratory Results - last 24 hr 08/14/23 22:50 WBC 6.9 RBC 4.11 L Hgb 11.0 L Hct 34.9 L MCV 84.9 MCH 26.8 L MCHC 31.5 L RDW Std Deviation 44.2 H RDW Coeff of Rex 14.2 Plt Count 305 MPV 8.9 Immature Gran % (Auto) 0.300 Neut % (Auto) 46.6 L Lymph % (Auto) 40.6 [place] % (Auto) 8.0 Eos % (Auto) 4.1 Baso % (Auto) 0.4 Absolute Neuts (auto) 3.2 Absolute Lymphs (auto) 2.80 Nucleated RBC % 0 Sodium 139 Potassium 4.0 Chloride 105 Carbon Dioxide 30.0 Anion Gap 4 L BUN 10 Creatinine 0.90 Estim Creat Clear Calc 86.46 Est GFR (MDRD) Af Amer 92 Est GFR (MDRD) Non-Af 76 BUN/Creatinine Ratio 11.1 Glucose 98 Calcium 8.9 Total Bilirubin 0.20 AST 15 ALT 17 Alkaline Phosphatase 71 Total Protein 7.2 Albumin 3.2 Globulin 4.0 Albumin/Globulin Ratio 0.8 L Serum , Qual NEGATIVE Ethyl Alcohol < 3.0 Discharge Plan Dx/Rx/DC Orders Clinical Impression: Drug abuse, Admitted to substance misuse detoxification center Disposition Disposition: Acute Care Hospital [facility]
[2023-08-14 23:06] LABS: Absolute Neutrophil Count 3.2 X10^3/uL (2.0-7.7); Basophil# 0.03 X10^3/uL; Basophil% 0.4 % (0-1); Eosinophil# 0.28 X10^3/uL; Eosinophils% 4.1 % (0-5); Hematocrit 34.9 % (37-47); Lymphocyte % 40.6 % (19-41); Mean Corp Hgb Conc 31.5 g/dL (32-36); Mean Corpuscular Hgb 26.8 pg (27.0-32.0); Mean Corpuscular Volume 84.9 fL (81-99); Mean Platelet Vol. 8.9 fl (6.2-12.0); Monocyte# 0.55 X10^3/uL; NRBC Flagged by Analyzer 0 % (0-5); Neutrophil # 3.21 X10^3/uL (2.7-7.7); Neutrophil % 46.6 % (47-70); Platelet Count 305 K/mm3 (150-450); RBC Distribution Width CV 14.2 % (11.6-14.6); RBC Distribution Width SD 44.2 fl (35.1-43.9); Red Blood Count 4.11 M/mm3 (4.2-5.4); White Blood Count 6.9 K/mm3 (4.4-11.0)
[2023-08-14 23:24] LABS: Alcohol, Blood (Medical)-Serum < 3.0 mg/dL
[2023-08-14 23:27] LABS: Internal QC Validated? YES +Cl - CLEAR BKGD; Pregnancy, Serum, hCG Quali. NEGATIVE Negative
[2023-08-14 23:29] LABS: ALB/GLOB Ratio 0.8 RATIO (0.9-2.4); AST(SGOT) 15 U/L (15-37); Alanine Aminotransfer ALT/SGPT 17 U/L (13-56); Albumin, Serum 3.2 g/dL (3.2-5.0); Alkaline Phosphatase 71 U/L (45-117); Anion Gap 4 (5-15); BUN 10 mg/dL (7-18); BUN/Creat Ratio 11.1 RATIO (10-20); Calcium,Total 8.9 mg/dL (8.5-10.1); Chloride 105 mmol/L (98-107); EST Glomerular Filtration Rate 76 mL/min (>60); Est Glom Filt Rate - Afr Amer 92 mL/min (>60); Estimated Creatinine Clearance 86.46 ml/min; Glucose 98 mg/dL (74-106); Protein, Total 7.2 g/dL (6.4-8.2); Sodium Level 139 mmol/L (136-145)
[2023-08-14 23:37] VITALS: BP 110/86; PULSE 89; RESP 18; TEMP 36.7; O2SAT 95
--- NOTE | 2023-08-15 00:35 | PCM.HP.STD ---
[facility] - General General Date of Service: 08/15/23 Chief Complaint: Wanting Detox. HPI Narrative ELLI SALMERON, is a 32 F with a past medical history of tobacco abuse, previous IVDA; with patient now snorting fentanyl and cocaine, recent history of at [facility] on July 03 of this year, hepatitis C, obesity; with BMI of 30.4 this admission and depression with anxiety who presents to [facility] complaining of wanting drug detoxification. Ms. Salmeron reports her symptoms began approximately 1 day prior to admission shortly after she completed her last illicit drug use with generalized anxiety and malaise. According to the patient her last drug detoxification was 3 to 6 months ago. She denies associated fever, chills, nausea or vomiting. Her previous scar is well-healed and shows no signs of infection and her laboratory tests and vital signs are unremarkable at this time. There was mention that she may have a warrant for her arrest and this fact may be driving her desire for admission as I was told that she was actively in the process of being arrested when she stated she needed to come to the hospital for detoxification. In the ER she was diagnosed with impending fentanyl and cocaine withdrawal she was then admitted to the general medical floor under observation status for a stay that is expected to be less than 48 hours. [facility] Home Medications buprenorphine HCl 8 mg sublingual tablet 8 mg sublingual DAILY 08/14/23 [History Last Taken Unknown] gabapentin 800 mg tablet 800 mg PO Q6H 08/14/23 [History Last Taken Unknown] Allergy/AdvReac Type Severity Reaction Status Date / Time amoxicillin Allergy Hives Verified 08/14/23 22:12 cephalexin monohydrate Allergy Hives Verified 08/14/23 22:12 [From Keflex] clindamycin Allergy Hives Verified 08/14/23 22:12 morphine Allergy Hives Verified 08/14/23 22:12 naloxone Allergy Anaphylaxis Verified 08/14/23 22:12 ondansetron HCl Allergy Hives Verified 08/14/23 22:12 [From Zofran (as hydrochloride)] Penicillins Allergy Hives Verified 08/14/23 22:12 rifampin Allergy Hives Verified 08/14/23 22:12 sulfamethoxazole Allergy Hives Verified 08/14/23 22:12 [From Bactrim] trimethoprim [From Bactrim] Allergy Hives Verified 08/14/23 22:12 vancomycin Allergy Hives Verified 08/14/23 22:12 Social History Smoking Status: Heavy Smoker (>10/day) ROS ROS Narrative Review of systems: General: Patient denies fevers or chills HENT: Denies headache, denies stuffy nose, denies sore throat EYES: Denies changes in vision Resp: Denies cough, denies shortness of breath Cardiac: Denies chest pain GI: Denies abdominal pain, denies changes in bowel, had some nausea : Denies changes in urination Extremity: Denies swelling Musculoskeletal: Feels somewhat generally weak and unwell overall Neuro: Denies any numbness/tingling Heme: Denies any bleeding or bruising Skin: Denies rashes Psychiatric: No complaints voiced Endocrine: No polyuria The rest of the 14 point ROS was negative except for positives in HPI. Vital Signs Vital Signs Vital Signs: 08/14/23 22:09 08/14/23 23:37 Temperature 97 F L 98.0 F Temperature Source Temporal Pulse Rate 96 89 Respiratory Rate 16 18 Blood Pressure 137/83 H 110/86 H Blood Pressure Mean 101 94 Pulse Ox 100 95 Oxygen Delivery Method Room Air Weight Weight: 194 lb 7 oz Body Mass Index (BMI) 30.4 Physical Exam Const alert, oriented x3, no apparent distress and average body habitus Constitutional Narrative: Patient appears older than her stated age with poor dentition. General Appearance: cooperative HEENT normocephalic, head/scalp atraumatic, hearing grossly normal bilaterally and moist oral mucous membranes HEENT Narrative: Poor dentition noted. Eyes PERRL, EOMs intact bilaterally and conjunctivae normal Neck no lymphadenopathy and supple Resp normal respiratory effort, no retractions, no use of accessory muscles and clear to auscultation bilaterally Cardio regular rate and regular rhythm GI normal to inspection, nondistended, normoactive bowel sounds, soft to palpation, non-tender and non-distended GI Narrative: Well-healed scar noted. Extremity normal to inspection, full ROM and no clubbing, cyanosis or edema Skin Skin Narrative: Patient has no evidence of rash at this time. Neuro oriented x3, CN's II-XII intact bilaterally, moves all extremities and no focal motor deficits Sensorium / Orientation: awake, alert, oriented to person, oriented to place and oriented to time Speech: speech normal Motor Exam: strength 5/5 throughout Psych affect normal Results Medical Records Data Attestation: I reviewed the patient's medical records Lab / Micro Data Attestation: I reviewed the patient's lab results. 08/14/23 22:50 08/14/23 22:50 Labs: Laboratory Results - last 24 hr 08/14/23 22:50: WBC 6.9, RBC 4.11 L, Hgb 11.0 L, Hct 34.9 L, MCV 84.9, MCH 26.8 L, MCHC 31.5 L, RDW Std Deviation 44.2 H, RDW Coeff of Rex 14.2, Plt Count 305, MPV 8.9, Immature Gran % (Auto) 0.300, Neut % (Auto) 46.6 L, Lymph % (Auto) 40.6, [place] % (Auto) 8.0, Eos % (Auto) 4.1, Baso % (Auto) 0.4, Absolute Neuts (auto) 3.2, Absolute Lymphs (auto) 2.80, Nucleated RBC % 0, Sodium 139, Potassium 4.0, Chloride 105, Carbon Dioxide 30.0, Anion Gap 4 L, BUN 10, Creatinine 0.90, Estim Creat Clear Calc 86.46, Est GFR (MDRD) Af Amer 92, Est GFR (MDRD) Non-Af 76, BUN/Creatinine Ratio 11.1, Glucose 98, Calcium 8.9, Total Bilirubin 0.20, AST 15, ALT 17, Alkaline Phosphatase 71, Total Protein 7.2, Albumin 3.2, Globulin 4.0, Albumin/Globulin Ratio 0.8 L, Serum , Qual NEGATIVE, Ethyl Alcohol < 3.0 Assessment & Plan Assessment/Plan (1) Drug abuse: (2) Opiate dependence: QUALIFIERS: Substance use status: uncomplicated Qualified Code(s): F11.20 - Opioid dependence, uncomplicated (3) Hepatitis C: QUALIFIERS: Hepatic coma status: without hepatic coma Viral hepatitis chronicity: chronic Qualified Code(s): B18.2 - Chronic viral hepatitis C (4) IVDU (intravenous drug user): PLAN: Plan 1. Impending polysubstance withdrawal with fentanyl and cocaine in the setting of chronic polysubstance abuse - Admit to general medical floor under observation status. Polysubstance cessation will be strongly encouraged. Patient will be started on detox protocol for opiates and will be managed symptomatically. Give low-dose Tylenol as needed pain or fever. This patient seems to have relatively poor insight into her complex medical and psychological problems and is suspected to be here to avoid [place] [facility] rather than to sincerely pursue sobriety. She was also noted to be slightly more lethargic a few hours after admission in spite of not being giving any medications for sedation with suspicion she may be self-medicating so security was called to search her belongings to prevent potential overdose. Finally, we will consult case management and substance abuse counselor to see this patient on rounds in the a.m. for further recommendations with help appreciated in advance. 2. Chronic hepatitis C complicating #1 - Stable at this time. 3. Tobacco abuse - Tobacco patient will be strongly encouraged with nicotine patch offered to control cravings. 4. Depression with anxiety - Stable. Resume current medical treatment. 5. Obesity; with BMI of 30.4 this admission - Weight loss will be recommended. 6. DVT prophylaxis - Lovenox milligrams subcu daily. Total time: Approximately 45 minutes. Charges/Coding Visit Charges OBSV E&M: 03319 Observ/hosp same date L1
[2023-08-15 03:38] VITALS: BP 145/89; PULSE 63; RESP 19; O2SAT 98
[2023-08-15 04:47] VITALS: O2SAT 100
--- NOTE | 2023-08-15 06:14 | ED.RN ---
Pt falling asleep on toilet all night, drooling on self. Pt unsteady on feet, slurring words. Belongings removed from room.
[2023-08-15 07:20] VITALS: BMI 30.4
[2023-08-15] MEDS: Gabapentin 800 MG Tablet PO ×3 (10:25→23:29)
[2023-08-15] MEDS: Enoxaparin 40 MG/0.4 ML Syringe SC (10:26)
--- NOTE | 2023-08-15 10:33 | NURSING ---
Pt refusing to take buprenorphine at this time; sent back to pharmacy via secure tube- spoke w/ April in pharmacy.
--- NOTE | 2023-08-15 12:59 | PN.HOSP_ITS ---
Reason for Visit Reason for Visit: Diagnoses Chronic viral hepatitis C (08/15/23) Opioid dependence, uncomplicated (08/15/23) Other psychoactive substance abuse, uncomplicated (08/15/23) Other psychoactive substance use, unspecified, uncomplicated (08/15/23) Objective Data Objective Data Vital Signs: Vital Signs Temp Pulse Resp BP Pulse Ox O2 Del Method 98.0 F 63 19 H 145/89 H 100 Room Air 08/14/23 23:37 08/15/23 03:38 08/15/23 03:38 08/15/23 03:38 08/15/23 04:47 08/15/23 03:38 Oxygen Delivery Method Room Air Weight: 88.1 kg Body Mass Index (BMI) 30.4 Intake & Output: Intake and Output for Last 24 Hours 08/13/23 08/14/23 08/15/23 23:59 23:59 23:59 Output Total 0 / 0 Balance 0 / 0 Lab / Micro Data 08/14/23 22:50 08/14/23 22:50 Labs: Laboratory Results - last 24 hr 08/14/23 22:50: WBC 6.9, RBC 4.11 L, Hgb 11.0 L, Hct 34.9 L, MCV 84.9, MCH 26.8 L, MCHC 31.5 L, RDW Std Deviation 44.2 H, RDW Coeff of Rex 14.2, Plt Count 305, MPV 8.9, Immature Gran % (Auto) 0.300, Neut % (Auto) 46.6 L, Lymph % (Auto) 40.6, [place] % (Auto) 8.0, Eos % (Auto) 4.1, Baso % (Auto) 0.4, Absolute Neuts (auto) 3.2, Absolute Lymphs (auto) 2.80, Nucleated RBC % 0, Sodium 139, Potassium 4.0, Chloride 105, Carbon Dioxide 30.0, Anion Gap 4 L, BUN 10, Creatinine 0.90, Estim Creat Clear Calc 86.46, Est GFR (MDRD) Af Amer 92, Est GFR (MDRD) Non-Af 76, BUN/Creatinine Ratio 11.1, Glucose 98, Calcium 8.9, Total Bilirubin 0.20, AST 15, ALT 17, Alkaline Phosphatase 71, Total Protein 7.2, Albumin 3.2, Globulin 4.0, Albumin/Globulin Ratio 0.8 L, Serum , Qual NEGATIVE, Ethyl Alcohol < 3.0 Physical Exam Narrative GENERAL: cooperative HEENT: Atraumatic; normocephalic EYES; Anicteric, Normal Conjunctiva NECK; supple, normal thyroid, RESPIRATORY: Diminished to auscultation CARDIOVASCULAR: Regular S1 S2, GI: soft, normoactive bowel sounds, : No Renal angle tenderness; EXTREMITIES: No edema, no clubbing, MUSCULOSKELETAL: no muscle wasting NEURO: Awake; no lateralizing signs. SKIN: No Rash PSYCH; Flat affect Assessment & Plan Assessment/Plan (1) Drug abuse: (2) Opiate dependence: QUALIFIERS: Substance use status: uncomplicated Qualified Code(s): F11.20 - Opioid dependence, uncomplicated (3) Hepatitis C: QUALIFIERS: Viral hepatitis chronicity: chronic Hepatic coma status: without hepatic coma Qualified Code(s): B18.2 - Chronic viral hepatitis C (4) IVDU (intravenous drug user): PLAN: Plan 1. Impending polysubstance withdrawal with fentanyl and cocaine in the setting of chronic polysubstance abuse - Admit to general medical floor under o bservation status. Polysubstance cessation will be strongly encouraged. Patient will be started on detox protocol for opiates and will be managed symptomatically. Give low-dose Tylenol as needed pain or fever. This patient seems to have relatively poor insight into her complex medical and psychological problems and is suspected to be here to avoid half-way rather than to sincerely pursue sobriety. She was also noted to be slightly more lethargic a few hours after admission in spite of not being giving any medications for sedation with suspicion she may be self-medicating so security was called to search her belongings to prevent potential overdose. Finally, we will consult case management and substance abuse counselor to see this patient on rounds in the a.m. for further recommendations with help appreciated in advance. 2. Chronic hepatitis C complicating #1 - Stable at this time. 3. Tobacco abuse - Tobacco patient will be strongly encouraged with nicotine patch offered to control cravings. 4. Depression with anxiety - Stable. Resume current medical treatment. 5. Obesity; with BMI of 30.4 this admission - Weight loss will be recommended. 6. DVT prophylaxis - Lovenox milligrams subcu daily. Total time: Approximately 45 minutes.
--- NOTE | 2023-08-15 12:59 | PCM.PN.HOSP ---
Reason for Visit Reason for Visit: Diagnoses Chronic viral hepatitis C (08/15/23) Opioid dependence, uncomplicated (08/15/23) Other psychoactive substance abuse, uncomplicated (08/15/23) Other psychoactive substance use, unspecified, uncomplicated (08/15/23) Subjective Subjective Patient is a 32-year-old female with history of polysubstance dependence admitted with acute opioid withdrawal Objective Data Objective Data Vital Signs: Vital Signs Temp Pulse Resp BP Pulse Ox O2 Del Method 98.0 F 63 19 H 145/89 H 100 Room Air 08/14/23 23:37 08/15/23 03:38 08/15/23 03:38 08/15/23 03:38 08/15/23 04:47 08/15/23 03:38 Oxygen Delivery Method Room Air Weight: 88.1 kg Body Mass Index (BMI) 30.4 Intake & Output: Intake and Output for Last 24 Hours 08/13/23 08/14/23 08/15/23 23:59 23:59 23:59 Output Total 0 / 0 Balance 0 / 0 Lab / Micro Data 08/14/23 22:50 08/14/23 22:50 Labs: Laboratory Results - last 24 hr 08/14/23 22:50: WBC 6.9, RBC 4.11 L, Hgb 11.0 L, Hct 34.9 L, MCV 84.9, MCH 26.8 L, MCHC 31.5 L, RDW Std Deviation 44.2 H, RDW Coeff of Rex 14.2, Plt Count 305, MPV 8.9, Immature Gran % (Auto) 0.300, Neut % (Auto) 46.6 L, Lymph % (Auto) 40.6, Garvin % (Auto) 8.0, Eos % (Auto) 4.1, Baso % (Auto) 0.4, Absolute Neuts (auto) 3.2, Absolute Lymphs (auto) 2.80, Nucleated RBC % 0, Sodium 139, Potassium 4.0, Chloride 105, Carbon Dioxide 30.0, Anion Gap 4 L, BUN 10, Creatinine 0.90, Estim Creat Clear Calc 86.46, Est GFR (MDRD) Af Amer 92, Est GFR (MDRD) Non-Af 76, BUN/Creatinine Ratio 11.1, Glucose 98, Calcium 8.9, Total Bilirubin 0.20, AST 15, ALT 17, Alkaline Phosphatase 71, Total Protein 7.2, Albumin 3.2, Globulin 4.0, Albumin/Globulin Ratio 0.8 L, Serum , Qual NEGATIVE, Ethyl Alcohol < 3.0 Physical Exam Narrative GENERAL: cooperative HEENT: Atraumatic; normocephalic EYES; Anicteric, Normal Conjunctiva NECK; supple, normal thyroid, RESPIRATORY: Diminished to auscultation CARDIOVASCULAR: Regular S1 S2, GI: soft, normoactive bowel sounds, : No Renal angle tenderness; EXTREMITIES: No edema, no clubbing, MUSCULOSKELETAL: no muscle wasting NEURO: Awake; no lateralizing signs. SKIN: No Rash PSYCH; Flat affect Assessment & Plan Assessment/Plan (1) Drug abuse: (2) Opiate dependence: QUALIFIERS: Substance use status: uncomplicated Qualified Code(s): F11.20 - Opioid dependence, uncomplicated (3) Hepatitis C: QUALIFIERS: Hepatic coma status: without hepatic coma Viral hepatitis chronicity: chronic Qualified Code(s): B18.2 - Chronic viral hepatitis C (4) IVDU (intravenous drug user): PLAN: Plan Patient is a 32-year-old female with history of polysubstance dependence admitted with acute opioid withdrawal 1. Acute opioid withdrawal ? Patient uses fentanyl. Patient has been admitted to a regular nursing floor, managed with Subutex taper in addition to adjuvant medications for his symptoms Polysubstance abuse ? Including fentanyl and cocaine counseled on cessation 3. Chronic hep C ? Patient to follow-up with primary care provider following her discharge 4. Tobacco dependence - Counseled on cessation, offered nicotine patch for tobacco cravings 5. Depression with anxiety ? Patient to follow-up with PCP for care 6. Class I obesity with BMI of 30.5 ? Weight loss advised 7. DVT prophylaxis ? Low risk early ambulation encouraged Time spent in the patient's overall evaluation,decision-making process, review of diagnostic data, adjustment of management, discussion with other providers, nursing nursing and ancillary staff involved in patient's care documentation,40 Minutes Charges/Coding Visit Charges Inpatient E&M: 71852 Subs Hosp L2
[2023-08-15 15:07] VITALS: BP 110/67; PULSE 69; RESP 19; TEMP 36.6; O2SAT 95
--- NOTE | 2023-08-15 16:26 | CASEMGMT ---
Social Work Pt admitted to the [facility] for Fentanyl and Opiate withdrawal. Nursing staff report pt has recently had a baby. SW met with pt. Pt able to open her eyes and talk with SW but with some difficulty. Pt confirms she recently had a baby girl, but unable to state when. Able to state baby's first name is Josselin but can't remember her last name. Per pt, children services is involved and the baby is at pt's grandmother's home, [place]. Phone call to [facility]. SW spoke with Tiffanie Srivastava who confirms pt's daughter is safety planned to [place]a Fraser's home. No futher SW needs regarding pt's child. MARLENE Faye
[2023-08-15 20:44] VITALS: BP 131/78; PULSE 81; RESP 16; TEMP 36.8; O2SAT 94
[2023-08-15 23:25] VITALS: BP 134/90; PULSE 75; RESP 16; TEMP 36.7; O2SAT 96
[2023-08-15 23:43] LABS: Amphetamine Urine VISTA NEGATIVE (<1000 ng/mL); Barbiturate Urine VISTA NEGATIVE (< 200 ng/mL); Benzodiazepine Urine VISTA NEGATIVE (< 200 ng/mL); Cocaine Urine VISTA POSITIVE (< 300 ng/mL); Ecstacy Urine VISTA NEGATIVE (< 500 ng/mL); Methadone Urine VISTA NEGATIVE (< 300 ng/mL); PCP Urine VISTA NEGATIVE (< 25 ng/mL); THC Urine VISTA NEGATIVE (< 50 ng/mL); Vista UDS pH Range 6
[2023-08-16 02:12] VITALS: BP 101/68; PULSE 53; RESP 16; TEMP 37.1; O2SAT 94
[2023-08-16] MEDS: Gabapentin 800 MG Tablet PO ×2 (05:41→11:51)
--- NOTE | 2023-08-16 08:22 | PCM.PN.HOSP ---
Reason for Visit Reason for Visit: Diagnoses Chronic viral hepatitis C (08/15/23) Opioid dependence, uncomplicated (08/15/23) Other psychoactive substance abuse, uncomplicated (08/15/23) Other psychoactive substance use, unspecified, uncomplicated (08/15/23) Subjective Subjective Patient seen complains of aching all over Objective Data Objective Data Vital Signs: Vital Signs Temp Pulse Resp BP Pulse Ox O2 Del Method 98.8 F 53 L 16 101/68 94 Room Air 08/16/23 02:12 08/16/23 02:12 08/16/23 02:12 08/16/23 02:12 08/16/23 02:12 08/16/23 02:12 Oxygen Delivery Method Room Air Weight: 88.1 kg Body Mass Index (BMI) 30.4 Intake & Output: Intake and Output for Last 24 Hours 08/14/23 08/15/23 08/16/23 23:59 23:59 23:59 Intake Total 700 / 700 900 / 900 Output Total 750 / 750 Balance -50 / -50 900 / 900 Lab / Micro Data 08/14/23 22:50 08/14/23 22:50 Labs: Laboratory Results - last 24 hr 08/15/23 23:15: Urine Opiates Screen NEGATIVE, Urine Methadone Screen NEGATIVE, Ur Barbiturates Screen NEGATIVE, Ur Phencyclidine Scrn NEGATIVE, Ur Amphetamines Screen NEGATIVE, MDMA (Ecstasy) Screen NEGATIVE, U Benzodiazepines Scrn NEGATIVE, Urine Cocaine Screen POSITIVE H, U Cannabinoids Screen NEGATIVE, Ur Drug Screen Comment Physical Exam Narrative GENERAL: cooperative HEENT: Atraumatic; normocephalic EYES; Anicteric, Normal Conjunctiva NECK; supple, normal thyroid, RESPIRATORY: Diminished to auscultation CARDIOVASCULAR: Regular S1 S2, GI: soft, normoactive bowel sounds, : No Renal angle tenderness; EXTREMITIES: No edema, no clubbing, MUSCULOSKELETAL: no muscle wasting NEURO: Awake; no lateralizing signs. SKIN: No Rash PSYCH; Flat affect HEENT normocephalic, head/scalp atraumatic, hearing grossly normal bilaterally and moist oral mucous membranes Eyes PERRL, EOMs intact bilaterally and conjunctivae normal Neck no lymphadenopathy and supple Resp normal respiratory effort, no retractions, no use of accessory muscles and clear to auscultation bilaterally Cardio regular rate and regular rhythm GI normal to inspection, nondistended, normoactive bowel sounds, soft to palpation, non-tender and non-distended GI Narrative: Well-healed scar noted. Extremity normal to inspection, full ROM and no clubbing, cyanosis or edema Skin Skin Narrative: Patient has no evidence of rash at this time. Neuro oriented x3, CN's II-XII intact bilaterally, moves all extremities and no focal motor deficits Sensorium / Orientation: awake, alert, oriented to person, oriented to place and oriented to time Speech: speech normal Motor Exam: strength 5/5 throughout Psych affect normal Assessment & Plan Assessment/Plan (1) Drug abuse: (2) Opiate dependence: QUALIFIERS: Substance use status: uncomplicated Qualified Code(s): F11.20 - Opioid dependence, uncomplicated (3) Hepatitis C: QUALIFIERS: Hepatic coma status: without hepatic coma Viral hepatitis chronicity: chronic Qualified Code(s): B18.2 - Chronic viral hepatitis C (4) IVDU (intravenous drug user): PLAN: Plan Patient is a 32-year-old female with history of polysubstance dependence admitted with acute opioid withdrawal 1. Acute opioid withdrawal ? Patient uses fentanyl. Patient has been admitted to a regular nursing floor, managed with Subutex taper in addition to adjuvant medications for his symptoms ? 08/16/2023; patient complains of aching all over Polysubstance abuse ? Including fentanyl and cocaine counseled on cessation 3. Chronic hep C ? Patient to follow-up with primary care provider following her discharge 4. Tobacco dependence - Counseled on cessation, offered nicotine patch for tobacco cravings 5. Depression with anxiety ? Patient to follow-up with PCP for care 6. Class I obesity with BMI of 30.5 ? Weight loss advised 7. DVT prophylaxis ? Low risk early ambulation encouraged Time spent in the patient's overall evaluation,decision-making process, review of diagnostic data, adjustment of management, discussion with other providers, nursing nursing and ancillary staff involved in patient's care documentation, 35 Minutes Charges/Coding Visit Charges Inpatient E&M: 94571 Subs Hosp L2
[2023-08-16 11:47] VITALS: BP 110/69; PULSE 60; RESP 16; TEMP 36.9; O2SAT 96
--- NOTE | 2023-08-16 12:18 | ADDICTION ---
Met with pt to complete addiction assessments. All assessments completed. It is recommended based on level of use and use hx that she admit to inpatient treatment. Pt reports that she only wants outpatient treatment. Clinician will give her resources based on clients location in which she lives. Pt did not express a need for transportation after d/c.
--- NOTE | 2023-08-16 12:28 | NURSING ---
Pt was attempting to find the Elevator with her coat and two belonging bags with her. Pt leaving AMA. This RN asked pt if she could sign the AMA paper but refused, would not remain eye contact with this nurse and just repeated no when asked about signing AMA paper. Pt got on the elevator left the floor. Dr. Jimenez aware.
--- NOTE | 2023-08-16 12:47 | PCM.DC.SUM ---
Providers Date of Admission: 08/15/23 Date of Discharge: 08/16/23 Primary Care Physician: Pamela Nguyen NP, [facility] PREVENTION MANAGER-C Reason For Visit: IMPENDING POLYSUBSTANCE WITHDRAWAL WITH FENTANYL Diagnosis Discharge Diagnosis (1) Drug abuse: Status: Acute Code(s): F19.10 - Other psychoactive substance abuse, uncomplicated (2) Opiate dependence: Status: Acute Code(s): F11.20 - Opioid dependence, uncomplicated Qualifiers: Substance use status: uncomplicated Qualified Code(s): F11.20 - Opioid dependence, uncomplicated (3) Hepatitis C: Status: Chronic Code(s): B19.20 - Unspecified viral hepatitis C without hepatic coma Qualifiers: Viral hepatitis chronicity: chronic Hepatic coma status: without hepatic coma Qualified Code(s): B18.2 - Chronic viral hepatitis C (4) IVDU (intravenous drug user): Status: Chronic Code(s): F19.90 - Other psychoactive substance use, unspecified, uncomplicated Plan Patient is a 32-year-old female with history of polysubstance dependence admitted with acute opioid withdrawal 1. Acute opioid withdrawal ? Patient uses fentanyl. Patient has been admitted to a regular nursing floor, managed with Subutex taper in addition to adjuvant medications for his symptoms ? 08/16/2023; patient complains of aching all over ? 08/16/2023 patient elected to sign out AGAINST MEDICAL ADVICE attempts made for patient to rescind his decision proved futile Polysubstance abuse ? Including fentanyl and cocaine counseled on cessation 3. Chronic hep C ? Patient to follow-up with primary care provider following her discharge 4. Tobacco dependence - Counseled on cessation, offered nicotine patch for tobacco cravings 5. Depression with anxiety ? Patient to follow-up with PCP for care 6. Class I obesity with BMI of 30.5 ? Weight loss advised 7. DVT prophylaxis ? Low risk early ambulation encouraged Time spent in the patient's overall evaluation,decision-making process, review of diagnostic data, adjustment of management, discussion with other providers, nursing nursing and ancillary staff involved in patient's care documentation, 35 Minutes Medications at Discharge Home Medications buprenorphine HCl 8 mg sublingual tablet 8 mg sublingual DAILY 08/14/23 gabapentin 800 mg tablet 800 mg PO Q6H 08/14/23 Hospital Course Summary of Care Provided Minutes Spent on Discharge: 35 Weight / BMI Weight Weight: 88.1 kg Body Mass Index (BMI) 30.4 ABG / Lab / Microbiology Data 08/14/23 22:50 08/14/23 22:50 Laboratory: Laboratory Results - last 24 hr 08/15/23 23:15: Urine Opiates Screen NEGATIVE, Urine Methadone Screen NEGATIVE, Ur Barbiturates Screen NEGATIVE, Ur Phencyclidine Scrn NEGATIVE, Ur Amphetamines Screen NEGATIVE, MDMA (Ecstasy) Screen NEGATIVE, U Benzodiazepines Scrn NEGATIVE, Urine Cocaine Screen POSITIVE H, U Cannabinoids Screen NEGATIVE, Ur Drug Screen Comment Meaningful Use Info Meaningful Use Diagnoses (Choose all that apply): None applicable Discharge Plan Admission Admit Date/Time: 08/15/23 12:21 Attending Provider: Jose Francisco Jimenez Primary Care Provider: Pamela Nguyen NP Consulting Providers: Jose Francisco Venegas Discharge Orders/Prescriptions Prescriptions: No Action gabapentin 800 mg tablet 800 mg PO Q6H Patient Comments: TAKE 1 TABLET BY MOUTH 4 TIMES A DAY buprenorphine HCl 8 mg tablet, sublingual 8 mg SUBLINGUAL DAILY Patient Comments: TAKE 2 AND 1/2 TABLETS UNDER THE TONGUE ONCE DAILY Referrals / Follow Up: NOT,DEFINED [Non-Staff] - Pamela Nguyen NP, [facility] [employer] PREVENTION MANAGER-C [Primary Care Provider] - Disposition Disposition (needs filled in before D/C Order can be placed): Against Medical Advice Charges/Coding Visit Charges Inpatient E&M: 81298 Disch Hosp >30min
--- NOTE | 2023-08-16 13:04 | CASEMGMT ---
Social Work SW received call from Hillary Ohara at [facility]. Hillary updated on pt's admission and that pt left AMA today. MARLENE Faye
== END 2023-08-16 12:20 | disposition left against medical advice (07) ==
LOC: ED 23:03 → MS3 08-15 06:21
PROVIDERS: Admitting Provider Internal Medicine; Emergency Provider Emergency Medicine; Visit Provider Internal Medicine
DX: F11.23 Opioid dependence with withdrawal (principal); F14.13 Cocaine abuse, unspecified with withdrawal; B18.2 Chronic viral hepatitis C; F41.8 Other specified anxiety disorders; E66.9 Obesity, unspecified; Z68.30 Body mass index [BMI] 30.0-30.9, adult; Z79.899 Other long term (current) drug therapy; F17.200 Nicotine dependence, unspecified, uncomplicated; L90.5 Scar conditions and fibrosis of skin
CPT/HCPCS: 80053; 80307; 82077; 84703; 85025; 99284; H0012